=== PATIENT | female | born 1975 | race Caucasian/White ===

== ENCOUNTER 2021-07-08 12:23 | Emergency (ER) | payer MEDICAID ==
[~2021-07-08] VITALS: Ht 157.5 cm; Wt 56.7 kg
[2021-07-08 13:12] VITALS: BP 154/96
[2021-07-08] MEDS ORDERED: KETOROLAC 15 MG/ML VIAL IM ONE (14:35)
[2021-07-08] MEDS ORDERED: AMOX-1000 PO (14:44)
--- NOTE | 2021-07-08 15:12 | NUR ---
Doretha augustin in [facility] - 07/08/21 at 1534 by MEDTOMMY PT BECKIE @ [id number]
--- NOTE | 2021-07-08 15:30 | NUR ---
Patient discharged with v/s stable. Written and verbal after care instructions given and explained. Patient alert, oriented and verbalized understanding of instructions. with steady gait. All questions addressed prior to discharge. ID band removed. Patient advised to follow up with PMD. Rx of AUGMENTIN given. Patient educated on indication of medication including possible reaction and side effects. Opportunity to ask questions provided and answered.
[2021-07-08 15:31] VITALS: BP 154/96
== END 2021-07-08 15:30 | disposition home or self-care (01) ==
LOC: MED 12:23
DX: S71.152A Open bite, left thigh, initial encounter (principal); W54.0XXA Bitten by dog, initial encounter; Y93.89 Activity, other specified; Y92.89 Other specified places as the place of occurrence of the external cause; Y99.8 Other external cause status
CPT/HCPCS: 90471; 90715; 96372; 99284; J1885